=== PATIENT | female | born 1960 | race Caucasian/White ===

== ENCOUNTER → 2020-12-08 09:06 | Outpatient (CLI) | payer OTHER, SELFPAY ==
[2020-12-08 11:21] LABS: COVID19 -Nasal RAPID Negative (Negative)
== END ==
PROVIDERS: Visit Provider Physician Assistant
DX: Z01.812 Encounter for preprocedural laboratory examination (principal); Z20.822 Contact with and (suspected) exposure to COVID-19
CPT/HCPCS: 87635

== ENCOUNTER 2020-12-10 08:56 | Day surgery (SDC) | payer OTHER, SELFPAY ==
--- NOTE | 2020-12-10 | PATH_ITS ---
[facility] Accession Number: [id number] . 01 Material submitted: . PART A: colon - HEPATIC POLYP PART B: colon - SPLENIC POLYPS X2 PART C: rectum - RECTAL POLYP . 01 Clinical history: . SCREENING COLONOSCOPY . 02 Diagnosis: A. Hepatic Polyp, Biopsy: Tubular adenoma. . B. Splenic Polyps x2, Biopsies: Tubular adenomas. . C. Rectum, Polyp, Biopsy: Tubulovillous adenoma. No evidence of malignancy or high-grade dysplasia. [facility] 12/15/2020 1451 Local . 02 Electronically signed: . Luh Lacey MD, Pathologist NPI- [id number] . 01 Gross description: . Part A: HEPATIC POLYP: Received in formalin are 2 fragment(s) of lópez, soft tissue measuring 0.2 x 0.2 x 0.2 cm to 0.3 x 0.3 x 0.2 cm submitted entirely in 1 cassette(s) Part B: SPLENIC POLYPS X2: Received in formalin are 2 fragment(s) of lópez, soft tissue measuring 0.2 x 0.2 x 0.2 cm to 0.3 x 0.2 x 0.2 cm submitted entirely in 1 cassette(s) Part C: RECTAL POLYP: Received in formalin are 4 fragment(s) of lópez, soft tissue measuring 0.1 x 0.1 x 0.1 cm to 0.7 x 0.6 x 0.5 cm submitted entirely in 1 cassette(s) /ERICK 12/11/2020 1833 Local . 02 Pathologist provided ICD-10: D12.3, D12.8 . 02 CPT . 825069, 911559, [id number] Performed at: [address], [place] [id number] MD Sukhjinder Florentino MD Phone: [phone] Performed at: 02 [facility] [id number] [place] [id number] MD uLh Lacey MD Phone: [phone]
[2020-12-10] MEDS: SODIUM CHLORIDE 0.9% 1,000 ML 100 ML IV (09:29)
[2020-12-10 09:30] VITALS: BP 150/88; PULSE 104; RESP 16; TEMP 36.9; O2SAT 96; BMI 33.6
--- NOTE | 2020-12-10 10:03 | PM.HP.1 ---
History of Present Illness History of Present Illness Date Patient Seen: 12/10/20 Chief complaint: SCREENING COLONOSCOPY Narrative: First screening colonoscopy. Distant relatives with history of colorectal neoplasia Patient History Family & Social History Social History: household members spouse Tobacco & Substance use: Smoking Status Never smoker alcohol intake frequency holiday/special occasion Substance Use Type does not use Meds Home Medications and Allergies Home Medications Medication Instructions Recorded Confirmed Type acetaminophen [Tylenol] 650 mg PO Q4H PRN 12/10/20 12/10/20 History cetirizine 10 mg PO DAILY 12/10/20 12/10/20 History docusate sodium 250 mg PO DAILY 12/10/20 12/10/20 History duloxetine 60 mg PO DAILY 12/10/20 12/10/20 History fluticasone furoate 1 spray INTRANASAL DAILY 12/10/20 12/10/20 History ibuprofen-diphenhydramine cit 2 cap PO BEDTIME 12/10/20 12/10/20 History [Advil PM] polyethylene glycol 3350 [Miralax] 17 g PO DAILY 12/10/20 12/10/20 History rizatriptan 10 mg PO Q2-4H PRN 12/10/20 12/10/20 History zolpidem 5 mg PO BEDTIME PRN 12/10/20 12/10/20 History Allergies Allergy/AdvReac Type Severity Reaction Status Date / Time No Known Drug Allergies Allergy Verified 12/10/20 09:13 Exam Vital Signs (past 8 hours): - 12/10/20 09:30 Temperature 98.5 F Pulse Rate 104 H Respiratory Rate 16 Blood Pressure 150/88 H Pulse Oximetry 96 Oxygen Delivery Method Room Air Narrative Exam Narrative: Oropharynx free of lesions Chest clear to auscultation percussion Cardiac exam reveals no S3 or murmur Assessment & Plan Assessment & Plan narrative: Screening colonoscopy, 1st 1. Grandparents with history of colorectal neoplasia. Risks, benefits, alternatives have been explained.
--- NOTE | 2020-12-10 10:04 | PM.OP.ENDO ---
Operative Date/Time/Diagnoses Date of procedure: 12/10/20 Pre-op diagnosis: See indication and findings Procedure & Clinicians Study performed: Colonoscopy Same procedure as scheduled: Yes Indications: Screening Surgeon: Genny Zimmerman Procedure Notes Procedure in detail: After informed consent was obtained the patient was placed in left lateral decubitus position. The video colonoscope was introduced the rectum slowly advanced cecum. On slow withdrawal mucosa was carefully examined. The scope was removed. The patient tolerated procedure well. Preparation was good. Blood loss none Complications none Sedation Total sedation time 23 minutes Versed 10 mg fentanyl 100 right g IV titration Findings 1. Tortuous sigmoid colon with few diverticula 2. 6 mm hepatic polyp removed in a piecemeal fashion with Jumbo biopsy forceps. 3. Two 3 mm polyps in the splenic flexure both removed with Jumbo biopsy forceps 4. 18 mm semi pedunculated polyp in the rectum removed and retrieved with hot snare. We will await biopsy findings but with this large polyp certainly to be adenomatous she will follow-up in 3 years.
[2020-12-10] MEDS: MIDAZOLAM 5 MG/5 ML VIAL IV (10:50)
[2020-12-10] MEDS: fentaNYL 250 MCG/5 ML INJ IV (10:50)
[2020-12-10 11:03] VITALS: BP 135/60; PULSE 95; RESP 12; TEMP 36.6; O2SAT 95
[2020-12-10 11:08] VITALS: BP 112/67; PULSE 92; RESP 12; O2SAT 97
[2020-12-10 11:13] VITALS: BP 114/67; PULSE 94; RESP 16; O2SAT 97
[2020-12-10 11:22] VITALS: BP 118/73; PULSE 88; RESP 14; TEMP 36.6; O2SAT 98
[2020-12-10 11:31] VITALS: BP 121/78; PULSE 91; RESP 16; TEMP 36.7; O2SAT 98
== END 2020-12-10 11:40 | disposition home or self-care (01) ==
PROVIDERS: Referring Provider Internal Medicine Gastroenterology; Visit Provider Internal Medicine Gastroenterology
PROC: 0DJD8ZZ Inspection of Lower Intestinal Tract, Via Natural or Artificial Opening Endoscopic (ICD-10-PCS; CPT 45378; principal; 2020-12-10 10:30)
DX: Z12.11 Encounter for screening for malignant neoplasm of colon (principal); K57.30 Diverticulosis of large intestine without perforation or abscess without bleeding; D12.8 Benign neoplasm of rectum; D12.3 Benign neoplasm of transverse colon
CPT/HCPCS: 45385; 45380; J2250; J3010

== ENCOUNTER → 2022-09-03 11:59 | Outpatient (CLI) | payer OTHER, SELFPAY ==
--- NOTE | 2022-09-03 | DI.CT.S_ITS ---
PROCEDURE: CT HEAD/BRAIN WO CON INDICATIONS: Migraine, unspecified, not intractable, without status migra TECHNIQUE: Noncontrast 4.5 mm thick angled axial sections acquired from the foramen magnum to the vertex, with coronal and sagittal reformats. For radiation dose reduction, the following was used: automated exposure control, adjustment of mA and/or kV according to patient size. COMPARISON: None. FINDINGS: Image quality: Excellent. CSF spaces: Basal cisterns are patent. No extra-axial fluid collections. Ventricles are normal in size and shape. Brain: No midline shift. No intracranial masses or hemorrhage. Menjivar-white matter interface is normal. Incidental enlarged perivascular space noted adjacent to the right aspect of the anterior commissure Skull and face: Calvarium and visualized facial bones are intact, without suspicious lesions. Sinuses: Visualized sinuses and mastoids are clear. IMPRESSION: Unremarkable CT of the brain Approved by: Kevin Sung M.D. on 09/03/2022 at 13:35
== END ==
PROVIDERS: PCP Physician Assistant; Referring Provider Physician Assistant; Visit Provider Physician Assistant
DX: G43.909 Migraine, unspecified, not intractable, without status migrainosus (principal); R29.810 Facial weakness
CPT/HCPCS: 70450

== ENCOUNTER 2022-12-09 19:22 | Inpatient (IN) | payer OTHER, SELFPAY ==
[2022-12-09 19:40] VITALS: BP 172/72; PULSE 104; RESP 30; TEMP 37.8; O2SAT 99; BMI 38.4
--- NOTE | 2022-12-09 20:06 | DI.CT.S_ITS ---
PROCEDURE: CT ABDOMEN PELVIS W CON INDICATIONS: acute severe lower abd pain TECHNIQUE: After the administration of IV contrast, axial sections were acquired from the lung bases to the pubic symphysis. Coronal and sagittal reformats were performed. For radiation dose reduction, the following was used: automated exposure control, adjustment of mA and/or kV according to patient size. COMPARISON: None. FINDINGS: Image quality: Excellent. Lung bases: There is mild dependent atelectasis and scarring. Heart: Heart is normal in size. There is a small hiatal hernia. Mild concentric wall thickening is demonstrated in the distal esophagus. Chest wall: There is a thick-walled collection within the right breast measuring up to 4.3 x 2.3 cm with adjacent surgical clips likely representing a postsurgical seroma. ABDOMEN: Liver: There is a lobulated cyst within the anterior right hepatic dome. There are 2 additional small foci within the liver which are too small to characterize but likely represent cysts. Gallbladder: Within normal limits without calcified gallstones. Biliary ducts: No biliary ductal dilatation. Pancreas: Unremarkable. Spleen: Normal in size. Adrenal Glands: No adrenal nodules. Kidneys and Ureters: No hydronephrosis. There is a right renal cortical cyst medially. Stomach and Bowel: There are postsurgical changes consistent with prior gastric lap band surgery. Stomach, small bowel loops, and colon are normal in caliber and wall thickness. There is an appendicolith measuring up to 0.5 cm within the appendix distally with associated dilatation of the appendiceal tip measuring up to 1.1 cm. There is associated periappendiceal fat stranding and minimal fluid. The findings are consistent with acute appendicitis. No free air or periappendiceal abscess. Ventral Wall: No hernia. Abdominal Nodes: No retroperitoneal or mesenteric adenopathy by size criteria. Vessels: Aorta and inferior vena cava are normal in size. PELVIS: Pelvic Organs: Unremarkable. Bladder: Unremarkable. Pelvic Nodes: No enlarged lymph nodes. Miscellaneous: No inguinal hernias are seen. Bones: Visualized osseous structures demonstrate no suspicious focal lesions. The IMPRESSION: 1. Acute appendicitis demonstrated with an appendicolith in the distal appendix. Associated dilatation of the appendiceal tip is demonstrated without adjacent fluid collection, abscess, or free air to suggest definite perforation at this time. Findings discussed with Dr. Medina on 12/09/2022 at 9:46 p.m.. Dictated by: Sukhjinder Sewell M.D. on 12/09/2022 at 21:35 Approved by: Sukhjinder Sewell M.D. on 12/09/2022 at 21:50
[2022-12-09 20:12] LABS: Add Manual Diff / Slide Review NO; Basophils Absolute Auto 100 /uL (0-100); Basophils Percent Auto 0.6 % (0-2); Eosinophils Absolute Auto 0 /uL (0-450); Eosinophils Percent Auto 0.2 % (2-4); Hematocrit 37.6 % (36-46); Hemoglobin 12.7 g/dL (12.0-16.0); Lymphocytes Absolute Auto 1500 /uL (1100-4500); Lymphocytes Percent Auto 9.8 % (25-40); Mean Corpuscular HGB Conc 33.7 % (30-36); Mean Corpuscular Hemoglobin 29.7 PG (26-34); Mean Corpuscular Volume 88.1 fL (80-100); Monocytes Absolute Auto 1600 /uL (0-900); Monocytes Percent Auto 10.1 % (3-14); Neutrophils Absolute Auto 12300 /uL (1500-7000); Neutrophils Percent Auto 79.3 % (50-75); Platelet Count 316 X10^3/uL (150-400); Red Blood Cell Count 4.27 X10^6/uL (4.0-5.2); Red Cell Distribution Width 13.4 % (11.6-14.8); White Blood Cell Count 15.5 X10^3/uL (4.5-11.0)
[2022-12-09] MEDS: SODIUM CHLORIDE 0.9% 1,000 ML 1000 ML IV (20:14)
[2022-12-09] MEDS: HYDROMORPHONE 0.5 MG INJ IV ×3 (20:14→20:44)
[2022-12-09] MEDS: ONDANSETRON 4 MG/2 ML INJ IV (20:14)
[2022-12-09 20:20] LABS: Alanine Aminotransferase 27 IU/L (<35); Albumin 4.3 g/dL (3.5-5.0); Albumin Globulin Ratio 1.3 (1.0-2.8); Alkaline Phosphatase 127 U/L (38-126); Aspartate Aminotransferase 35 IU/L (14-36); Bilirubin Total 0.5 mg/dL (0.2-1.3); Blood Urea Nitrogen 15 mg/dL (7-17); Calcium 8.8 mg/dL (8.4-10.2); Carbon Dioxide 23 mmol/L (22-32); Chloride 103 mmol/L (98-107); Estimated Glomerular Filt Rate > 60 mL/min (>60); Globulin 3.2 g/dL (1.7-4.1); Glucose 120 mg/dL (80-110); HEMOLYSIS < 15 (0-50); Lipase 107 U/L (23-300); Sodium 136 mmol/L (137-145); Total Protein 7.5 g/dL (6.3-8.2)
[2022-12-09 20:29] LABS: Lactate (Lactic Acid) 1.5 mmol/L (0.7-2.1)
[2022-12-09] MEDS: SODIUM CHLORIDE 0.9% 1,000 ML 130 ML IV (21:16)
[2022-12-09 21:22] VITALS: BP 137/70; PULSE 101; RESP 25; O2SAT 94
[2022-12-09 21:30] VITALS: BP 141/67; PULSE 98; RESP 24; O2SAT 93
--- NOTE | 2022-12-09 22:03 | ED_ITS ---
HPI - General Adult General Chief complaint: Abdominal Pain Stated complaint: Severe ABD pain Time Seen by Provider: 12/09/22 19:58 Source: patient Mode of arrival: Ambulatory History of Present Illness HPI narrative: 62-year-old woman with a history of back pain controlled by Cymbalta, headaches controlled with HS amitriptyline and Ambien for sleep disorder was in her usual state of fairly good health until around 6:00 p.m. tonight after dinner when she began experiencing severe lower abdominal pain. she notes that she has had a g astric sleeve but no other intra-abdominal surgery. She is never had a bowel obstruction. She does not describe fevers. The nausea from the pain is severe but she is not yet had any vomiting. Describes normal stools recently. No chest pain, palpitations, dyspnea. Related Data Home Medications Medication Instructions Recorded Confirmed acetaminophen 325 mg tablet 650 mg PO Q4H PRN Anxiety 12/10/20 12/10/20 (Tylenol) cetirizine 10 mg tablet 10 mg PO DAILY 12/10/20 12/10/20 docusate sodium 250 mg capsule 250 mg PO DAILY 12/10/20 12/10/20 duloxetine 60 mg capsule,delayed 60 mg PO DAILY 12/10/20 12/10/20 release fluticasone furoate 27.5 1 spray intranasal DAILY 12/10/20 12/10/20 mcg/actuation nasal spray,suspension ibuprofen-diphenhydramine citrate 2 cap PO BEDTIME 12/10/20 12/10/20 200 mg-38 mg tablet (Advil PM) polyethylene glycol 3350 17 17 g PO DAILY 12/10/20 12/10/20 gram/dose oral powder (Miralax) rizatriptan 10 mg tablet 10 mg PO Q2-4H PRN Headache 12/10/20 12/10/20 zolpidem 5 mg tablet 5 mg PO BEDTIME PRN Insomnia 12/10/20 12/10/20 Allergies Allergy/AdvReac Type Severity Reaction Status Date / Time No Known Drug Allergies Allergy Verified 12/09/22 19:48 Review of Systems Review of Systems Narrative: Pertinent positive and negative findings as per HPI Patient History Medical History (Updated 12/09/22 @ 22:13 by Jennifer Medina MD) Acute appendicitis Chronic back pain Chronic headache Surgical History (Updated 12/09/22 @ 22:06 by Jennifer Medina MD) Status post gastric banding Social History household members: spouse Smoking Status: Never smoker Smoking Status: Never smoker alcohol intake frequency: holidays/special occasions only Substance Use Type: does not use Exam Initial Vital Signs Initial Vital Signs: Vital Signs Temperature 100.1 F H 12/09/22 19:40 Pulse Rate 104 H 12/09/22 19:40 Respiratory Rate 30 H 12/09/22 19:40 Blood Pressure 172/72 H 12/09/22 19:40 Pulse Oximetry 99 12/09/22 19:40 Oxygen Delivery Method Room Air 12/09/22 19:40 General: in severe distress secondary to lower abdominal pain, pale, diaphoretic HEENT: Moist mucous membranes, normal sclera with reactive pupils, Neck: No JVD, supple Respiratory: Lungs are clear to auscultation, no wheezing no rales no rhonchi. Full and symmetrical air movement Cardiac: Regular rate and rhythm no murmurs no bruits Abdomen: Soft, very tender in the lower quadrants with guarding and rebound. Mild tenderness in the upper quadrants. Hypoactive to absent bowel tones Skin: Warm and dry, no rashes Neurologic: Grossly neurologically intact with no obvious asymmetries or abnormalities Extremities: No trauma, well perfused Psych: Cooperative, appropriate insight and affect Course Orders Ordered: ED Orders 12/09/22 19:49 EKG-12 Lead Stat 12/09/22 20:00 Complete Blood Count AUTO DIFF Stat Comprehensive Metabolic Panel Stat Lactate (Lactic Acid) Stat Lipase Stat 12/09/22 20:06 CT abdomen pelvis w con Stat 12/09/22 21:57 Education, smoking cessation ONGOING 12/10/22 05:00 Complete Blood Count AUTO DIFF DAILY Comprehensive Metabolic Panel DAILY NT-proBNP (BNP-Adult 18+) Routine Acetaminophen (Acetaminophen 325 Mg Tablet) 650 mg PO Q6H [facility] Last Admin: 12/09/22 22:54 Dose: 650 mg Documented By: OFELIA Celecoxib (Celecoxib 200 Mg Capsule) 200 mg PO BID [facility] Last Admin: 12/09/22 23:01 Dose: 200 mg Documented By: OFELIA Gabapentin (Gabapentin 100 Mg Capsule) 300 mg PO TID [facility] Last Admin: 12/09/22 23:01 Dose: 300 mg Documented By: OFELIA Heparin Sodium (Porcine) (Heparin 5,000 Unit/Ml Vial) 5,000 unit SUBCUT BID [facility] Last Admin: 12/09/22 22:53 Dose: 5,000 unit Documented By: OFELIA Hydromorphone HCl (Hydromorphone 0.5 Mg Inj) 0.5 mg IV Q15MIN PRN PRN Reason: Pain, Last Admin: 12/09/22 20:44 Dose: 0.5 mg Documented By: Admin: 12/09/22 20:29 Dose: 0.5 mg Documented By: Admin: 12/09/22 20:14 Dose: 0.5 mg Documented By: OFELIA Sodium Chloride (Normal Saline 0.9%) 1,000 mls @ 130 mls/hr IV CONT [facility] Last Admin: 12/09/22 21:16 Dose: 130 mls/hr Documented By: OFELIA Lactated Ringer's (Lactated Ringers) 1,000 mls @ 150 mls/hr IV CONT [facility] Last Admin: 12/09/22 22:54 Dose: 150 mls/hr Documented By: OFELIA Naloxone HCl (Naloxone 0.4 Mg/Ml Vial) 0.2 mg IV Q2MIN PRN PRN Reason: Opiate Reversal Ondansetron HCl (Ondansetron 4 Mg/2 Ml Inj) 4 mg IV NOW PRN PRN Reason: Nausea And Vomiting Oxycodone HCl (Oxycodone Ir 5 Mg Tablet) 5 mg PO Q3H PRN PRN Reason: Pain, Moderate (4-6) Oxycodone HCl (Oxycodone Ir 10 Mg Tablet) 10 mg PO Q3H PRN PRN Reason: Pain, Severe (7-10) Pantoprazole Sodium (Pantoprazole Dr 20 Mg Tablet) 20 mg PO 0600 [facility] Discontinued Medications Celecoxib (Celecoxib 100 Mg Capsule) 200 mg PO BID [facility] Last Admin: 12/10/22 00:16 Dose: Not Given Documented By: OFELIA Sodium Chloride (Normal Saline 0.9%) 1,000 mls @ 1,000 mls/hr IV BOLUS ONE Stop: 12/09/22 21:04 Last Infusion: 12/09/22 21:03 Dose: 0 mls/hr Documented By: Admin: 12/09/22 20:14 Dose: 1,000 mls/hr Documented By: OFELIA Piperacillin Sod/Tazobactam (Sod 4.5 gm/ Sodium Chloride) 100 mls @ 200 mls/hr IV NOW ONE Stop: 12/09/22 22:03 Last Infusion: 12/10/22 00:15 Dose: 0 mls/hr Documented By: Admin: 12/09/22 22:53 Dose: 200 mls/hr Documented By: OFELIA Ondansetron HCl (Ondansetron 4 Mg/2 Ml Inj) 4 mg IV NOW ONE Stop: 12/09/22 20:06 Last Admin: 12/09/22 20:14 Dose: 4 mg Documented By: OFELIA Vital Signs Vital signs: Vital Signs - 8 hr 12/09/22 19:40 12/09/22 21:22 12/09/22 21:22 Temperature 100.1 F H Pulse Rate 104 H 101 H Respiratory Rate 30 H 25 H Blood Pressure 172/72 H 137/70 Pulse Oximetry 99 94 Oxygen Delivery Method Room Air 12/09/22 21:30 12/09/22 21:30 Temperature Pulse Rate 98 H Respiratory Rate 24 Blood Pressure 141/67 H Pulse Oximetry 93 Oxygen Delivery Method Medical Decision Making Lab Data 12/09/22 20:00 12/09/22 20:00 Labs: Lab Results 12/09/22 12/09/22 12/09/22 Range/Units 20:00 20:00 20:00 WBC 15.5 H (4.5-11.0) X10^3/uL RBC 4.27 (4.0-5.2) X10^6/uL Hgb 12.7 (12.0-16.0) g/dL Hct 37.6 (36-46) % MCV 88.1 (80-100) fL MCH 29.7 (26-34) PG MCHC 33.7 (30-36) % RDW 13.4 (11.6-14.8) % Plt Count 316 (150-400) X10^3/uL Neut % (Auto) 79.3 H (50-75) % Lymph % (Auto) 9.8 L (25-40) % [place] % (Auto) 10.1 (3-14) % Eos % (Auto) 0.2 L (2-4) % Baso % (Auto) 0.6 (0-2) % Neut # (Auto) 96784 H (5429-6222) /uL Lymph # (Auto) 1500 (0862-8370) /uL [place] # (Auto) 1600 H (0-900) /uL Eos # (Auto) 0 (0-450) /uL Baso # (Auto) 100 (0-100) /uL Sodium 136 L (137-145) mmol/L Potassium 4.0 (3.4-5.1) mmol/L Chloride 103 (98-107) mmol/L Carbon Dioxide 23 (22-32) mmol/L BUN 15 (7-17) mg/dL Creatinine 0.88 (0.52-1.04) mg/dL Estimated GFR > 60 (>60) mL/min BUN/Creatinine Ratio 17.0 (6-22) Glucose 120 H (80-110) mg/dL Lactate 1.5 (0.7-2.1) mmol/L Calcium 8.8 (8.4-10.2) mg/dL Total Bilirubin 0.5 (0.2-1.3) mg/dL AST 35 (14-36) IU/L ALT 27 (<35) IU/L Alkaline Phosphatase 127 H (38-126) U/L Total Protein 7.5 (6.3-8.2) g/dL Albumin 4.3 (3.5-5.0) g/dL Globulin 3.2 (1.7-4.1) g/dL Albumin/Globulin Ratio 1.3 (1.0-2.8) Lipase 107 (23-300) U/L MDM Narrative Medical decision making narrative: CC:Acute onset severe lower abdominal pain this is a new complaint, uncertain prognosis with potential for life- threatening diagnosis Complicating co-morbidities: low back pain and chronic headaches Data collected from: patient, Social determinants of health that may influence the patients condition: Medical records reviewed: no immediate medical records are available for review Differential considered: acute surgical abdomen, appendicitis, nephrolithiasis, pyelonephritis, volvulus, bowel obstruction, diverticulitis, acute gallbladder abnormality Exam documented above, pertinent findings include: severe abdominal pain with guarding and rebound worse in the right lower quadrant Lab Test results independently reviewed as above. Pertinent findings: CBC shows moderate leukocytosis at 15.5 with left shift and no significant an emia chemistries show normal renal function, normal liver function lipase is unremarkable at 1.7 Independently reviewed EKG sinus rhythm at a rate of 99 poor baseline. Normal intervals and axis no acute ischemic changes Imaging studies independently reviewed: CT scan of the abdomen and pelvis shows acute appendicitis without abscess Consultations: Radiology, Dr. Sewell calls with acute findings from CT scan. Care is also reviewed with Dr. Loredo, general surgeon. Treatments: IV fluids, parenteral narcotics and antiemetics. Re-evaluations: 10:10pm Patient is re-evaluated. Much better control of pain after parenteral Dilaudid. Findings of acute appendicitis reviewed with her as well as plans for admission with surgical intervention tomorrow. Antibiotics will be initiated. Questions are answered and she will be admitted Critical Care Time Critical Care Time Critical Care Time: Yes Total Critical Care Time: 33 Attestation: Critical care time is separate from other billable procedures. There is a high probability of a significant, sudden or life-threatening deterioration that requires my full and direct attention, intervention and personal management. This critical care time includes consultation with family and other consulting doctors, review of records, and interpretation of data from labs, EKGs and imaging as well as managements of severe abdominal pain with concern for acute surgical abdomen Discharge Plan Departure Patient Disposition: Admitted as Observation Clinical Impression: Acute appendicitis Qualifiers: Acute appendicitis type: with localized peritonitis Appendicitis gangrene presence: without gangrene Appendicitis perforation presence: without perforation Appendicitis abscess presence: without abscess Qualified Code(s): K35.30 - Acute appendicitis with localized peritonitis, without perforation or gangrene Admit Date/Time: 12/09/22 22:52 Admit Provider: Janene Loredo
[2022-12-09] MEDS: HEPARIN 5,000 UNIT/ML VIAL 5000 UNIT SUBCUT (22:53)
[2022-12-09] MEDS: PIPERACILLIN/TAZO 4.5 GM in SODIUM CHLORIDE 0.9% 100 ML IV (22:53)
[2022-12-09] MEDS: ACETAMINOPHEN 325 MG TABLET 650 MG PO (22:54)
[2022-12-09] MEDS: LACTATED RINGERS 1,000 ML 150 ML IV (22:54)
[2022-12-09] MEDS: CELECOXIB 200 MG CAPSULE PO (23:01)
[2022-12-09] MEDS: GABAPENTIN 100 MG CAPSULE 300 MG PO (23:01)
[2022-12-10] VITALS (12 sets, daily range): BP systolic 98–112; BP diastolic 51–69; PULSE 71–95; RESP 16–19; TEMP 36.1; O2SAT 91–97; BMI 39.4
[2022-12-10 01:07] LABS: COVID19 -Nasal RAPID Negative (Negative)
[2022-12-10] MEDS: HYDROMORPHONE 0.5 MG INJ IV ×3 (02:29→16:08)
[2022-12-10] MEDS: ACETAMINOPHEN 325 MG TABLET 650 MG PO ×4 (04:15→23:09)
[2022-12-10 04:37] LABS: Add Manual Diff / Slide Review NO; Basophils Absolute Auto 100 /uL (0-100); Basophils Percent Auto 0.5 % (0-2); Eosinophils Absolute Auto 0 /uL (0-450); Eosinophils Percent Auto 0.2 % (2-4); Hematocrit 33.4 % (36-46); Hemoglobin 11.1 g/dL (12.0-16.0); Lymphocytes Absolute Auto 1600 /uL (1100-4500); Lymphocytes Percent Auto 12.1 % (25-40); Mean Corpuscular HGB Conc 33.3 % (30-36); Mean Corpuscular Hemoglobin 29.7 PG (26-34); Mean Corpuscular Volume 89.1 fL (80-100); Monocytes Absolute Auto 1000 /uL (0-900); Monocytes Percent Auto 7.8 % (3-14); Neutrophils Absolute Auto 10400 /uL (1500-7000); Neutrophils Percent Auto 79.4 % (50-75); Platelet Count 248 X10^3/uL (150-400); Red Blood Cell Count 3.74 X10^6/uL (4.0-5.2); Red Cell Distribution Width 13.6 % (11.6-14.8); White Blood Cell Count 13.1 X10^3/uL (4.5-11.0)
[2022-12-10 04:47] LABS: Alanine Aminotransferase 23 IU/L (<35); Albumin 3.4 g/dL (3.5-5.0); Albumin Globulin Ratio 1.3 (1.0-2.8); Alkaline Phosphatase 84 U/L (38-126); Aspartate Aminotransferase 26 IU/L (14-36); BUN Creatinine Ratio 15.7 (6-22); Bilirubin Total 0.6 mg/dL (0.2-1.3); Blood Urea Nitrogen 13 mg/dL (7-17); Calcium 7.9 mg/dL (8.4-10.2); Carbon Dioxide 26 mmol/L (22-32); Chloride 103 mmol/L (98-107); Estimated Glomerular Filt Rate > 60 mL/min (>60); Globulin 2.7 g/dL (1.7-4.1); Glucose 104 mg/dL (80-110); HEMOLYSIS < 15 (0-50); Potassium 3.8 mmol/L (3.4-5.1); Sodium 134 mmol/L (137-145); Total Protein 6.1 g/dL (6.3-8.2)
[2022-12-10 04:55] LABS: NT-proBNP (BNP-Adult 18+) 322 pg/mL (<125)
--- NOTE | 2022-12-10 07:44 | PM.HP.1 ---
History of Present Illness History of Present Illness Date Patient Seen: 12/10/22 Time Patient Seen: 07:44 Chief complaint: Severe ABD pain Narrative: >24hrs of abdominal discomfort localizing to RLQ. +temp, anorexia no cough or diarrhea. +reflux and hemorrhoidal bleeding. CT reviewed personally and +ruptured appy with fecal lith. thickened esophagus and stomach proximal to gastric band. PFS Medical History Acute appendicitis Chronic back pain Chronic headache Surgical History Status post gastric banding Social History household members: spouse Smoking Status: Never smoker Meds Home Medications and Allergies Home Medications Medication Instructions Recorded Confirmed Type acetaminophen 325 mg tablet 650 mg PO Q4H PRN Anxiety 12/10/20 12/10/20 History (Tylenol) cetirizine 10 mg tablet 10 mg PO DAILY 12/10/20 12/10/20 History docusate sodium 250 mg capsule 250 mg PO DAILY 12/10/20 12/10/20 History duloxetine 60 mg capsule,delayed 60 mg PO DAILY 12/10/20 12/10/20 History release fluticasone furoate 27.5 1 spray intranasal DAILY 12/10/20 12/10/20 History mcg/actuation nasal spray,suspension ibuprofen-diphenhydramine citrate 2 cap PO BEDTIME 12/10/20 12/10/20 History 200 mg-38 mg tablet (Advil PM) polyethylene glycol 3350 17 17 g PO DAILY 12/10/20 12/10/20 History gram/dose oral powder (Miralax) rizatriptan 10 mg tablet 10 mg PO Q2-4H PRN Headache 12/10/20 12/10/20 History zolpidem 5 mg tablet 5 mg PO BEDTIME PRN Insomnia 12/10/20 12/10/20 History Allergies Allergy/AdvReac Type Severity Reaction Status Date / Time No Known Drug Allergies Allergy Verified 12/09/22 19:48 Review of Systems Review of Systems ROS: Yes All systems reviewed with the patient and are negative except as otherwise documented Exam Vital Signs (past 8 hours): - 12/10/22 00:18 12/10/22 04:06 Pulse Rate 95 H 81 Respiratory Rate 16 Blood Pressure 108/51 L Blood Pressure [Left Arm] 111/58 L Pulse Oximetry 95 91 Oxygen Delivery Method Room Air Room Air Oxygen Delivery Method Room Air Const General: cooperative and comfortable Nutritional Appearance: obese HENVA Head: normocephalic and atraumatic Eyes Sclera: sclerae normal Neck Neck: trachea midline Chest Chest: normal inspection of the chest Resp Effort & Inspection: normal respiratory effort and able to speak in complete sentences Cardio Rate: regular rate Rhythm: regular rhythm GI Palpation: soft Other: RLQ tenderness Skin General: turgor normal Neuro General: patient alert, patient awake and patient oriented x3 Cognition: normal cognition Psych Mental Status: mental status grossly normal Judgment: judgment good Objective Labs 12/10/22 04:20 12/10/22 04:20 Labs: Laboratory Results - last 24 hr 12/09/22 12/09/22 12/09/22 20:00 20:00 20:00 WBC 15.5 H RBC 4.27 Hgb 12.7 Hct 37.6 MCV 88.1 MCH 29.7 MCHC 33.7 RDW 13.4 Plt Count 316 Neut % (Auto) 79.3 H Lymph % (Auto) 9.8 L [place] % (Auto) 10.1 Eos % (Auto) 0.2 L Baso % (Auto) 0.6 Neut # (Auto) 97132 H Lymph # (Auto) 1500 [place] # (Auto) 1600 H Eos # (Auto) 0 Baso # (Auto) 100 Sodium 136 L Potassium 4.0 Chloride 103 Carbon Dioxide 23 BUN 15 Creatinine 0.88 Estimated GFR > 60 BUN/Creatinine Ratio 17.0 Glucose 120 H Lactate 1.5 Calcium 8.8 Total Bilirubin 0.5 AST 35 ALT 27 Alkaline Phosphatase 127 H NT-Pro-B Natriuret Pep Total Protein 7.5 Albumin 4.3 Globulin 3.2 Albumin/Globulin Ratio 1.3 Lipase 107 SARS-CoV-2 (PCR) 12/10/22 12/10/22 12/10/22 00:00 04:20 04:20 WBC 13.1 H RBC 3.74 L Hgb 11.1 L Hct 33.4 L MCV 89.1 MCH 29.7 MCHC 33.3 RDW 13.6 Plt Count 248 Neut % (Auto) 79.4 H Lymph % (Auto) 12.1 L [place] % (Auto) 7.8 Eos % (Auto) 0.2 L Baso % (Auto) 0.5 Neut # (Auto) 81602 H Lymph # (Auto) 1600 [place] # (Auto) 1000 H Eos # (Auto) 0 Baso # (Auto) 100 Sodium 134 L Potassium 3.8 Chloride 103 Carbon Dioxide 26 BUN 13 Creatinine 0.83 Estimated GFR > 60 BUN/Creatinine Ratio 15.7 Glucose 104 Lactate Calcium 7.9 L Total Bilirubin 0.6 AST 26 ALT 23 Alkaline Phosphatase 84 NT-Pro-B Natriuret Pep 322 H Total Protein 6.1 L Albumin 3.4 L Globulin 2.7 Albumin/Globulin Ratio 1.3 Lipase SARS-CoV-2 (PCR) Negative Assessment & Plan Assessment & Plan narrative: ruptured appendicitis with fecal lith obesity, s/p lap band esophagitis rectal bleeding Plan: IV antibiotics Lap appy today outpatient EGD and colonoscopy. COVID-19 COVID-19 status: Negative Time Spent With Patient Time with patient: 30 to 49 minutes with 50% spent counseling/coordinating care
[2022-12-10] MEDS: GABAPENTIN 300 MG CAPSULE PO ×3 (08:08→21:21)
[2022-12-10] MEDS: CELECOXIB 200 MG CAPSULE PO ×2 (08:08→21:20)
[2022-12-10] MEDS: LACTATED RINGERS 1,000 ML 150 ML IV ×2 (08:14→19:12)
[2022-12-10] MEDS: PANTOPRAZOLE 40 MG VIAL IV (09:54)
--- NOTE | 2022-12-10 11:17 | PC.NURSE ---
Dr. Loredo notified that pt did decide to have her LAP band addressed/removed if possible while in sx.
--- NOTE | 2022-12-10 12:18 | CM.IDA ---
Initial DCP Assessment Patient is 62 y/o female who presents to due to concern for abdominal pain and N/V/D. Patient was diagnosed with Acute Appendicitis. Patient was admitted by surgeon Dr. Loredo with scheduled surgery this evening. Patient's PCP is Letha Charles PA-C at [facility], Patient has [employer] insurance. PARTNER CCO enters room to meet with patient. Patient presents as A/Ox4, patient resides in [place] with spouse. Patient endorses independence with ADLs and states that she drives. Patient endorses she has family in [place] and she was caring for her grandkids when she started to feel sick and needed to go to the hospital. Patient denies DCP needs and anticipates going home once medically clear for d/c. Plan: Patient to have Appendicitis surgery today, No anticipated DCP needs. Patient to d/c with spouse to home upon medical clearance. KELLY Chau Discharge Planning/Care Management CM Discharge Assessment Start: 12/10/22 12:17 Freq: Status: Active Protocol: Document 12/10/22 12:17 LN (Rec: 12/10/22 12:18 LN [id number]) Discharge Planning Assessment Assigned Signal Repairer KELLY James History Provided By Patient,Medical Record Has Patient been admitted in last 30 No days? Prior Living Arrangements House Household Members spouse Type of transporation used prior to Drives own vehicle admit Independent with ADL's Yes Is patient alert and oriented? Yes Referrals Initiated None needed Please Provide Date Initial DC 12/10/22 Assessment Was Performed
[2022-12-10] MEDS: PIPERACILLIN/TAZO 3.375 GM in SODIUM CHLORIDE 0.9% 100 ML IV ×2 (13:35→21:21)
[2022-12-10] MEDS: OXYCODONE IR 5 MG TABLET PO ×2 (16:07→21:22)
[2022-12-10] MEDS: SODIUM CHLORIDE 0.9% 1,000 ML 130 ML IV (23:08)
[2022-12-11] VITALS (21 sets, daily range): BP systolic 106–141; BP diastolic 56–84; PULSE 82–105; RESP 11–20; TEMP 35.6–37.7; O2SAT 90–98; BMI 39.4
--- NOTE | 2022-12-11 | PATH_ITS ---
[facility] Accession Number: [id number] No. of containers..01 Tissue . 01 Material submitted: . appendix - APPENDIX . 01 Clinical history: . SEVERE AVD PAIN . 01 Diagnosis: Vermiform Appendix, Appendectomy: Acute transmural appendicitis and periappendicitis with focal changes consistent with perforation site. Negative for neoplasia. MRV 12/15/2022 1412 Local . 01 Electronically signed: . Janene Gonzales MD, Pathologist NPI- [id number] . 01 Gross description: . The specimen is received in formalin labeled with the patient's name, , and appendix, and consists of a vermiform appendix measuring 9.2 x 0.6 cm with a moderate amount of attached adipose extending out to 2.1 cm. The serosa is lópez with adherent material consistent with exudate and a full thickness defect is identified measuring 0.5 cm in greatest dimension. The surgical margin is received closed with alejandro which are removed and the margin is inked blue. Sectioning reveals the lumen to contain brown semi-solid material and range from 0.1 to 0.3 cm in diameter. The angeles are lópez and average 0.3 cm thick with no distinct lesions identified. Coal Screener sections to include one half of the bisected distal tip, surgical margin, and cross-section with defect are submitted in cassette A1. ([id number]) /TREY 12/14/2022 1024 Local . 01 Pathologist provided ICD-10: K35.32 . 01 CPT . 187535 Specimen Comment: A courtesy copy of this report has been sent to [phone] Performed at: 01 [facility] [address] [place] [address], [place], [place] [id number] MD Sukhjinder Florentino MD Phone: [phone]
[2022-12-11] MEDS: ACETAMINOPHEN 325 MG TABLET 650 MG PO ×2 (05:37→20:54)
[2022-12-11] MEDS: PIPERACILLIN/TAZO 3.375 GM in SODIUM CHLORIDE 0.9% 100 ML IV ×2 (05:38→20:55)
[2022-12-11] MEDS: SODIUM CHLORIDE 0.9% 1,000 ML 130 ML IV ×3 (06:07→22:29)
[2022-12-11] MEDS: PANTOPRAZOLE DR 20 MG TABLET PO (06:44)
--- NOTE | 2022-12-11 09:47 | PC.NURSE ---
Pt A/O has been NPO all noc. SpO2 97% RA Denies discomfort at this time IVF of NS @ 130cc/hr infusing into RAC via pump w/o incidence. Awaiting to go to OR Call light w/in reach, pt calls appropriately for needs.
[2022-12-11] MEDS: LACTATED RINGERS 1,000 ML 42 ML IV (12:35)
--- NOTE | 2022-12-11 12:53 | PM.PREOP ---
Pre-operative Note COVID-19 COVID-19 status: Negative Criteria for continued procedure: Expected advancement of disease process Interval Note History & Physical reviewed/Exam performed by Physician: Yes Changes to H&P: No H&P completed within 30 days and has changed as indicated here:: Will add possible removal of lap band to the surgical procedure.
--- NOTE | 2022-12-11 13:30 | SUR.OPER ---
Supine on padded OR bed, head on pillow, arms padded and tucked at sides, legs uncrossed, safety belt at thigh, tape over blanket over lower legs .
--- NOTE | 2022-12-11 13:38 | SUR.OPER ---
GLASSES IN LABELED BAG TO PACU WITH PATIENT
[2022-12-11] MEDS: BUPIVACAINE 0.25% (PF) 30 ML, EPINEPHrine 0.15 MG INJ (13:48)
[2022-12-11] MEDS: LACTATED RINGERS 1,000 ML 150 ML IV (14:13)
--- NOTE | 2022-12-11 14:21 | CM.DPNOTE ---
Discharge Planning Note: Patient to surgery today for a lap appy. No DCP needs anticipated. Patient lives with spouse in [place]. She is generally independent and drives. Plan: DC to care of spouse who will transport when medically cleared. Kristen Turner RN/DCP
--- NOTE | 2022-12-11 14:58 | P.OP_ITS ---
Operative Date/Time/Diagnoses Date of procedure: 12/11/22 Time of procedure: 14:59 Pre-op diagnosis: Ruptured appendicitis. History of lap band Post-op diagnosis: same Procedure & Clinicians Procedure: Laparoscopic appendectomy with removal of lap band Same procedure as scheduled: Yes Indications: Ruptured appendicitis, chronic GI symptoms from lap band Surgeon: Janene Loredo Click Yes if Unassisted: Yes Anesthesia Type: General and Local Operative Notes Findings: Ruptured appendicitis with focal contained perforation. Normal-appearing lap band Closure Type: primary Specimen(s): other (Appendix) Estimated Blood Loss (mL): 50 Blood products transfused: none Procedure in detail: Preop diagnosis: Ruptured appendicitis, existing lap band Postop diagnosis: Same Operative procedure: Laparoscopic appendectomy with removal of lap band Surgeon: Trinity Loredo MD Findings: Contained ruptured appendicitis. Normal-appearing lap band Procedure: Patient placed in a supine position. Prepped and draped in sterile fashion to expose her abdomen. I began with the open technique an infraumbilical port site using a 12 mm port. After insufflation I inserted a 5 mm port in the suprapubic area and a 5 mm port in the left lateral abdomen. Appendix was identified and mobilized. Appendiceal mesentery was taken down with electrocautery with good hemostasis and a healthy staple line. Appendix was placed into an Endo-Catch bag and pulled through the infraumbilical port site intact. Of note manipulation of a fallopian tube also was caught up in the process caused some bleeding which was addressed and not bleeding at the end of the procedure. Leaving the existing ports in place I placed 3 other 5 mm ports in the upper abdomen to remove the lap band. Two on the right upper abdomen and 1 on the left. Scissors and electrocautery was used to display and then severed the lap band which was pulled through the umbilical port intact. Intact being that the tubing to the port itself was severed prior to removal of the port from the abdomen. I then removed all ports and began closure. Closure consisted of fascial closure of the infraumbilical port site with interrupted 0 Vicryl. Skin was closed with running 4-0 Vicryl. The abdominal wall port for the lap band was removed through the old incision using blunt dissection electrocautery and sharp dissection. That wound was closed skin only with a running 4.0 Vicryl. Steri- Strips and sterile dressings were placed on all wounds. Patient was awakened, extubated, taken to recovery room in stable condition. Needle, instrument, sponge counts was correct. Specimen: Appendix Blood loss: 50 mL Complications: none Post-operative Condition: stable Disposition: PACU
--- NOTE | 2022-12-11 15:01 | SUR.PHASEI ---
Patient to recovery room with anesthesia and OR nurse in stable condition; placed on lunchroom monitor; vss; abdominal incisions x 7 with small amount of oozing noted from umbilical dressing. Lungs CTA; no distress noted.
[2022-12-11] MEDS: LORATADINE 10 MG TABLET PO (17:36)
[2022-12-11] MEDS: DULOXETINE 30 MG CAPSULE 120 MG PO (17:36)
[2022-12-11] MEDS: AMITRIPTYLINE 25 MG TABLET PO (17:36)
[2022-12-11] MEDS: GABAPENTIN 300 MG CAPSULE PO (20:55)
[2022-12-11] MEDS: OXYCODONE IR 10 MG TABLET PO (20:55)
[2022-12-12] VITALS: BP 127/51; PULSE 97; RESP 22; TEMP 36.9; O2SAT 90
[2022-12-12 01:00] VITALS: O2SAT 91
[2022-12-12 04:00] VITALS: BP 105/52; PULSE 85; RESP 18; TEMP 36.7; O2SAT 92
[2022-12-12 05:00] VITALS: O2SAT 92
[2022-12-12] MEDS: OXYCODONE IR 10 MG TABLET PO (05:42)
[2022-12-12] MEDS: PANTOPRAZOLE DR 20 MG TABLET PO (05:42)
[2022-12-12] MEDS: PIPERACILLIN/TAZO 3.375 GM in SODIUM CHLORIDE 0.9% 100 ML IV (05:43)
[2022-12-12] MEDS: ACETAMINOPHEN 325 MG TABLET 650 MG PO (05:43)
[2022-12-12] MEDS: SODIUM CHLORIDE 0.9% 1,000 ML 130 ML IV (06:12)
[2022-12-12 06:57] LABS: Add Manual Diff / Slide Review NO; Basophils Absolute Auto 100 /uL (0-100); Basophils Percent Auto 0.5 % (0-2); Eosinophils Absolute Auto 0 /uL (0-450); Eosinophils Percent Auto 0.1 % (2-4); Hematocrit 30.8 % (36-46); Hemoglobin 10.2 g/dL (12.0-16.0); Lymphocytes Absolute Auto 1200 /uL (1100-4500); Lymphocytes Percent Auto 8.9 % (25-40); Mean Corpuscular HGB Conc 33.2 % (30-36); Mean Corpuscular Hemoglobin 29.5 PG (26-34); Mean Corpuscular Volume 88.8 fL (80-100); Monocytes Absolute Auto 1500 /uL (0-900); Monocytes Percent Auto 10.5 % (3-14); Neutrophils Absolute Auto 11000 /uL (1500-7000); Platelet Count 279 X10^3/uL (150-400); Red Blood Cell Count 3.46 X10^6/uL (4.0-5.2); Red Cell Distribution Width 13.4 % (11.6-14.8); White Blood Cell Count 13.8 X10^3/uL (4.5-11.0)
--- NOTE | 2022-12-12 10:04 | P.PN_ITS ---
Subjective Subjective Date Patient Seen: 12/12/22 Time Patient Seen: 10:04 Interval history: No issues with food intake. Interested in going home today. Exam Vital Signs (past 8 hours): - 12/12/22 04:00 12/12/22 05:00 Temperature 98.0 F Pulse Rate 85 Respiratory Rate 18 Blood Pressure 105/52 L Pulse Oximetry 92 92 Oxygen Delivery Method Room Air Oxygen Delivery Method Room Air Oxygen Flow Rate 0 Narrative Exam Narrative: No post op complications. Objective Labs 12/12/22 06:21 12/10/22 04:20 Labs: Laboratory Results - last 24 hr 12/12/22 06:21 WBC 13.8 H RBC 3.46 L Hgb 10.2 L Hct 30.8 L MCV 88.8 MCH 29.5 MCHC 33.2 RDW 13.4 Plt Count 279 Neut % (Auto) 80.0 H Lymph % (Auto) 8.9 L [place] % (Auto) 10.5 Eos % (Auto) 0.1 L Baso % (Auto) 0.5 Neut # (Auto) 62854 H Lymph # (Auto) 1200 [place] # (Auto) 1500 H Eos # (Auto) 0 Baso # (Auto) 100 PFSH Medical History Acute appendicitis Chronic back pain Chronic headache Surgical History Status post gastric banding Social History household members: spouse Smoking Status: Never smoker alcohol intake: current Assessment & Plan Post-op Postoperative Procedures: Procedures Operation Date: 12/11/22 14:30 Actual Procedure Side Surgeon p Laparoscopic Appendectomy, Removal Lap Band Not Applicable Janene Loredo MD Postoperative status: doing well Postoperative plan: routine post-op care and discharge Postoperative plan narrative: Finish out antibiotics of Augmentin at home. Liftin restriction EGD when she has next colonoscopy(screening) to eval health of stomach after Lap band removal. Time Spent With Patient Time with patient: 15-24 minutes Quality VTE Deep Vein Thrombosis/Pulmonary Embolism Present on Admission: No
--- NOTE | 2022-12-12 10:07 | PM.DS.1 ---
History of Present Illness History of Present Illness Date Patient Seen: 12/12/22 Time Patient Seen: 10:07 Chief complaint: Severe ABD pain Narrative: >24hrs of abdominal discomfort localizing to RLQ. +temp, anorexia no cough or diarrhea. +reflux and hemorrhoidal bleeding. CT reviewed personally and +ruptured appy with fecal lith. thickened esophagus and stomach proximal to gastric band. Discharge Providers Provider Date of admission: 12/09/22 22:52 Discharge Date: 12/12/22 Primary care physician: Letha Charles Consults: none Discharge provider: Janene Loredo MD Summary Hospital Course Discharge Diagnosis: sepsis ruptured appendicitis lap band removal Obesity Hospital Course: admitted for IV antibiotics followed by laparoscopic appendectomy with lap band removal No postoperative complications. We will discharge to home on p.o. antibiotics with follow-up in 2-4 weeks. Lifting restrictions of 15 lb for 2 weeks. Status at Discharge Cognitive/behavioral status at discharge: at baseline, oriented Functional status at discharge: independent ambulation Overall status at discharge: patient is progressing back to baseline Time Spent with Patient Time spent: Less than 30 minutes Exam Vital Signs (past 8 hours): - 12/12/22 04:00 12/12/22 05:00 Temperature 98.0 F Pulse Rate 85 Respiratory Rate 18 Blood Pressure 105/52 L Pulse Oximetry 92 92 Oxygen Delivery Method Room Air Oxygen Delivery Method Room Air Oxygen Flow Rate 0 Narrative Exam Narrative: Wounds intact. No complications. Tolerating p.o. without upper GI issues. Objective Labs 12/12/22 06:21 12/10/22 04:20 Labs: Laboratory Results - last 24 hr 12/12/22 06:21 WBC 13.8 H RBC 3.46 L Hgb 10.2 L Hct 30.8 L MCV 88.8 MCH 29.5 MCHC 33.2 RDW 13.4 Plt Count 279 Neut % (Auto) 80.0 H Lymph % (Auto) 8.9 L [place] % (Auto) 10.5 Eos % (Auto) 0.1 L Baso % (Auto) 0.5 Neut # (Auto) 32338 H Lymph # (Auto) 1200 [place] # (Auto) 1500 H Eos # (Auto) 0 Baso # (Auto) 100 PFSH Medical History Acute appendicitis Chronic back pain Chronic headache Surgical History Status post gastric banding Social History household members: spouse Smoking Status: Never smoker alcohol intake: current Discharge Assessment & Plan Assessment and Plan Assessment: Sepsis on admission responding to IV antibiotics. Ruptured appendicitis is primary diagnosis. Underwent laparoscopic appendectomy with good success as well as removal of lap band. Plan of Treatment: Discharge home on p.o. antibiotics for a total of 14 days. Follow-up surgery Clinic 2-4 weeks. Lifting restrictions of 15 lb for 2 weeks. Recommend EGD at the same time of her next colonoscopy which is due for colon cancer screening to evaluate the health of her stomach after removal of gastric band. Discharge Plan Discharge Plan Patient Disposition: Home Provider Discharge Comment: Protonix for reflux, vit for anemia. Discharge orders & Medications Prescriptions: New celecoxib [Celebrex] 200 mg Capsule 200 mg PO BID Qty: 20 0RF pantoprazole 20 mg Tablet,Delayed Release (Dr/Ec) 20 mg PO 0600 Qty: 30 0RF gabapentin [Neurontin] 300 mg Capsule 300 mg PO TID Qty: 30 0RF amoxicillin-pot clavulanate 875-125 mg Tablet 1 tab PO BID Qty: 14 0RF oxycodone 5 mg Tablet 5 mg PO Q3H PRN (Reason: Pain, Moderate (4-6)) Qty: 20 0RF Prenatabs Rx 29 mg iron- 1 mg Tablet 1 tab PO DAILY Qty: 30 0RF Continued amitriptyline 25 mg Tablet 25 mg PO DAILY cetirizine 10 mg Tablet 10 mg PO DAILY rizatriptan 10 mg Tablet 10 mg PO Q2-4H PRN (Reason: Headache) zolpidem 5 mg Tablet 5 mg PO BEDTIME PRN (Reason: Insomnia) polyethylene glycol 3350 [Miralax] 17 gram/dose Powder 17 g PO PRN PRN (Reason: Constipation) docusate sodium 250 mg Capsule 250 mg PO DAILY duloxetine 60 mg Capsule,Delayed Release(Dr/Ec) 120 mg PO DAILY fluticasone furoate 27.5 mcg/actuation [place],Suspension 1 spray INTRANASAL DAILY Follow up/Referrals: Letha Charles PA-C [Primary Care Provider] - Janene Loredo MD [Emergency Provider] - Diet/Activity/Treatments Diet: Diet as Tolerated Visit Report/Discharge Packet Instructions: DI for an Appendectomy, DI for Laparoscopy Stand Alone Forms: Patient Portal/API, Stroke Signs & Symptoms, Surgery Discharge Discharge Data Primary Care Provider: Letha Charles Discharges patient from system. Discharge Date/Time: 12/12/22 08:47 Quality VTE Deep Vein Thrombosis/Pulmonary Embolism Present on Admission: No
== END 2022-12-12 08:47 | disposition home or self-care (01) | DRG 853 ==
LOC: ED 22:13 → AC 12-10 06:43
PROVIDERS: Admitting Provider Surgery; Emergency Provider Surgery; PCP Physician Assistant; Referring Provider Emergency Medicine; Visit Provider Surgery
PROC: 0DTJ4ZZ Resection of Appendix, Percutaneous Endoscopic Approach (ICD-10-PCS; CPT 44970; principal; 2022-12-11 14:30)
DX: A41.9 Sepsis, unspecified organism (principal); K35.32 Acute appendicitis with perforation, localized peritonitis, and gangrene, without abscess; Z98.84 Bariatric surgery status; Z20.822 Contact with and (suspected) exposure to COVID-19
CPT/HCPCS: 36415; 43772; 44970; 74177; 80053; 81003; 83605; 83690; 83880; 85025; 87635; 93005; 96365; 96366; 96375; 99222; 99284; 99291; C9803; C9113; J0171; J1100; J1170; J1644; J2405; J2543; J2704; J3010; Q9967

== ENCOUNTER 2022-12-16 17:32 | Emergency (ER) | payer OTHER, SELFPAY ==
[2022-12-10 21:55] VITALS: BMI 39.4
[2022-12-16] VITALS (11 sets, daily range): BP systolic 134–187; BP diastolic 71–91; PULSE 66–79; RESP 18–28; TEMP 36.3; O2SAT 94–97; BMI 41.4
--- NOTE | 2022-12-16 18:06 | ED_ITS ---
HPI - SOB/Dyspnea General Chief Complaint: Shortness of Breath/Dyspnea Stated Complaint: short of breath s/p surgery on sat Time Seen by Provider: 12/16/22 17:48 Source: patient Mode of arrival: Ambulatory History of Present Illness HPI Narrative: This is a 62-year-old female with history of breast cancer with lumpectomy and radiation, chronic back pain, seasonal allergies who is 5 days postop from ex lap for ruptured appendicitis as well as gastric lap band removal. Patient did have a delay going to the OR for about 2 days before she had her appendix removed, she states since being discharged he is had increasing shortness of breath, orthopnea and swelling in her extremities. She denies any chest pain or pressure. No fevers, no chills. She is had some mild cough that has been nonproductive. No lightheadedness or passing out. She denies any nausea or vomiting. She states her abdominal pain is present particularly when she coughs but is slowly improving. She states incision seemed to be clean and dry and healing. She states she is been having bowel movements regularly, no black or bloody stools. No dysuria, urgency or frequency. Patient notes she has had increased swelling bilateral lower extremities along with some slight discomfort on the inside of the ankles. She has not appreciate any cramping or redness otherwise. Patient normally takes duloxetine for chronic back pain, Tylenol in the morning, amitriptyline for headaches, Zyrtec and Flonase. She states she was discharged home on gabapentin and an NSAID for her pain. She states she has not been taking the oxycodone in the last couple days. Patient has a prior lap band which was removed during her appendectomy. She is had history of breast ca ncer with lumpectomy and radiation but no chemotherapy or HRT therapy. Bilateral knee surgery. No known drug allergies. No tobacco, alcohol or illicit. She notes her mom did develop blood clots and pulmonary emboli after vein stripping about 20 years ago. Related Data Home Medications Medication Instructions Recorded Confirmed cetirizine 10 mg tablet 10 mg PO DAILY 12/10/20 12/10/22 docusate sodium 250 mg capsule 250 mg PO DAILY 12/10/20 12/10/22 duloxetine 60 mg capsule,delayed 120 mg PO DAILY 12/10/20 12/10/22 release fluticasone furoate 27.5 1 spray intranasal DAILY 12/10/20 12/10/22 mcg/actuation nasal spray,suspension polyethylene glycol 3350 17 17 g PO PRN PRN Constipation 12/10/20 12/10/22 gram/dose oral powder (Miralax) rizatriptan 10 mg tablet 10 mg PO Q2-4H PRN Headache 12/10/20 12/10/22 zolpidem 5 mg tablet 5 mg PO BEDTIME PRN Insomnia 12/10/20 12/10/22 amitriptyline 25 mg tablet 25 mg PO DAILY 12/10/22 12/10/22 Previous Rx's Medication Instructions Recorded amoxicillin 875 mg-potassium 1 tab PO BID #14 tabs 12/12/22 clavulanate 125 mg tablet celecoxib 200 mg capsule (Celebrex) 200 mg PO BID #20 caps 12/12/22 gabapentin 300 mg capsule 300 mg PO TID #30 caps 12/12/22 (Neurontin) oxycodone 5 mg tablet 5 mg PO Q3H PRN Pain, Moderate 12/12/22 (4-6) #20 tabs pantoprazole 20 mg tablet,delayed 20 mg PO 0600 #30 tabs 12/12/22 release vitamin 1 tab PO DAILY #30 tabs 12/12/22 no.76-iron,carbonyl 29 mg iron-folic acid 1 mg tablet (Prenatabs Rx) furosemide 40 mg tablet (Lasix) 40 mg PO DAILY #7 tabs 12/16/22 Allergies Allergy/AdvReac Type Severity Reaction Status Date / Time ketorolac [From Toradol] AdvReac Headache Verified 12/16/22 17:51 Review of Systems Review of Systems ROS Unobtainable: All systems reviewed & are unremarkable except as noted in HPI and below Patient History Medical History Acute appendicitis Chronic back pain Chronic headache Surgical History Status post gastric banding Social History household members: spouse Smoking Status: Never smoker alcohol intake: current Smoking Status: Never smoker alcohol intake frequency: holidays/special occasions only Substance Use Type: does not use Exam Narrative Exam Narrative: GENERAL: Alert and oriented x three, obese female in mild distress HEENT: Head normocephalic, atraumatic, EOMI, pupils reactive, face symmetric, moist mucous membranes NECK: Supple, full range of motion CARDIOVASCULAR: Regular rate and rhythm without murmurs, rubs or gallops. Patient has bilateral lower extremity edema. RESPIRATORY: Breath sounds equal bilaterally, no wheezes rales or rhonchi. Mild tachypnea. No accessory muscle use. ABDOMEN: Soft, mild generalized tenderness. Nondistended. Patient has healing incisions that are clean dry and intact without any erythema or drainage. Normoactive bowel sounds all 4 quadrants. No guarding or rebound, rigidity, no mass : No CVA tenderness EXTREMITIES: Normal range of motion, no clubbing, positive for edema. Neurovascularly intact NEUROLOGICAL: Cranial nerves II through XII grossly intact. Moving all extremities SKIN: Warm, dry, no petechiae, no rashes or lesions. Initial Vital Signs Initial Vital Signs: Vital Signs Pulse Rate 79 12/16/22 17:44 Blood Pressure 187/91 H 12/16/22 17:44 Pulse Oximetry 96 12/16/22 17:44 Course Orders Ordered: ED Orders 12/16/22 18:07 Chest [XR chest 1V] Stat EKG-12 Lead Stat 12/16/22 18:21 US periph venous low extrem bi Stat 12/16/22 18:56 CT angio chest PE protocol Stat Discontinued Medications Furosemide (Furosemide 40 Mg/4 Ml Vial) 40 mg IV NOW ONE Stop: 12/16/22 20:36 Last Admin: 12/16/22 20:47 Dose: 40 mg Documented By: SB Vital Signs Vital signs: Vital Signs - 8 hr 12/16/22 21:18 12/16/22 19:30 12/16/22 19:57 Pulse Rate 71 Respiratory Rate 19 Blood Pressure 137/76 134/85 Pulse Oximetry 95 Oxygen Delivery Method 12/16/22 20:09 12/16/22 20:30 12/16/22 21:00 Pulse Rate 67 66 Respiratory Rate 18 18 Blood Pressure 152/73 H Pulse Oximetry 95 94 Oxygen Delivery Method Room Air 12/16/22 21:17 12/16/22 21:18 Pulse Rate 73 Respiratory Rate Blood Pressure 137/76 Pulse Oximetry 96 Oxygen Delivery Method MDM - SOB/Dyspnea Lab Data 12/16/22 17:47 12/16/22 17:47 Labs: Lab Results 12/16/22 12/16/22 12/16/22 Range/Units 17:03 17:47 17:47 WBC 9.4 (4.5-11.0) X10^3/uL RBC 3.55 L (4.0-5.2) X10^6/uL Hgb 10.4 L (12.0-16.0) g/dL Hct 31.2 L (36-46) % MCV 87.9 (80-100) fL MCH 29.2 (26-34) PG MCHC 33.2 (30-36) % RDW 13.8 (11.6-14.8) % Plt Count 415 H (150-400) X10^3/uL Neut % (Auto) 63.3 (50-75) % Lymph % (Auto) 21.0 L (25-40) % [place] % (Auto) 11.5 (3-14) % Eos % (Auto) 3.4 (2-4) % Baso % (Auto) 0.8 (0-2) % Neut # (Auto) 5900 (5758-4780) /uL Lymph # (Auto) 2000 (6417-9374) /uL [place] # (Auto) 1100 H (0-900) /uL Eos # (Auto) 300 (0-450) /uL Baso # (Auto) 100 (0-100) /uL PT 12.1 (10.1-12.7) SECONDS INR 1.1 (0.9-1.3) APTT 32 (26-36) SECONDS D-Dimer 4564 H (<500) ng/ml Sodium (137-145) mmol/L Potassium (3.4-5.1) mmol/L Chloride (98-107) mmol/L Carbon Dioxide (22-32) mmol/L BUN (7-17) mg/dL Creatinine (0.52-1.04) mg/dL Estimated GFR (>60) mL/min BUN/Creatinine Ratio (6-22) Glucose (80-110) mg/dL Calcium (8.4-10.2) mg/dL Magnesium (1.6-2.3) mg/dL Total Bilirubin (0.2-1.3) mg/dL AST (14-36) IU/L ALT (<35) IU/L Alkaline Phosphatase (38-126) U/L Total Creatine Kinase (30-135) U/L CK-MB (CK-2) (<2.37) ng/mL CK-MB (CK-2) Rel Index (1.5-5.0) % Troponin I (0.01-0.034) ng/mL NT-Pro-B Natriuret Pep (<125) pg/mL Total Protein (6.3-8.2) g/dL Albumin (3.5-5.0) g/dL Globulin (1.7-4.1) g/dL Albumin/Globulin Ratio (1.0-2.8) Lipase (23-300) U/L 12/16/22 Range/Units 17:47 WBC (4.5-11.0) X10^3/uL RBC (4.0-5.2) X10^6/uL Hgb (12.0-16.0) g/dL Hct (36-46) % MCV (80-100) fL MCH (26-34) PG MCHC (30-36) % RDW (11.6-14.8) % Plt Count (150-400) X10^3/uL Neut % (Auto) (50-75) % Lymph % (Auto) (25-40) % [place]pson % (Auto) (3-14) % Eos % (Auto) (2-4) % Baso % (Auto) (0-2) % Neut # (Auto) (0935-4721) /uL Lymph # (Auto) (2131-9585) /uL [place]pson # (Auto) (0-900) /uL Eos # (Auto) (0-450) /uL Baso # (Auto) (0-100) /uL PT (10.1-12.7) SECONDS INR (0.9-1.3) APTT (26-36) SECONDS D-Dimer (<500) ng/ml Sodium 140 (137-145) mmol/L Potassium 3.7 (3.4-5.1) mmol/L Chloride 104 (98-107) mmol/L Carbon Dioxide 29 (22-32) mmol/L BUN 12 (7-17) mg/dL Creatinine 0.61 (0.52-1.04) mg/dL Estimated GFR > 60 (>60) mL/min BUN/Creatinine Ratio 19.7 (6-22) Glucose 93 (80-110) mg/dL Calcium 8.2 L (8.4-10.2) mg/dL Magnesium 2.0 (1.6-2.3) mg/dL Total Bilirubin 0.1 L (0.2-1.3) mg/dL AST 25 (14-36) IU/L ALT 26 (<35) IU/L Alkaline Phosphatase 116 (38-126) U/L Total Creatine Kinase 116 (30-135) U/L CK-MB (CK-2) 2.39 H (<2.37) ng/mL CK-MB (CK-2) Rel Index 2.1 (1.5-5.0) % Troponin I < 0.012 (0.01-0.034) ng/mL NT-Pro-B Natriuret Pep 932 H (<125) pg/mL Total Protein 6.3 (6.3-8.2) g/dL Albumin 3.1 L (3.5-5.0) g/dL Globulin 3.2 (1.7-4.1) g/dL Albumin/Globulin Ratio 1.0 (1.0-2.8) Lipase 136 (23-300) U/L Urine Dip Bedside Urine Glucose Negative Bedside Urine Bilirubin - Negative Bedside Urine Ketone - Negative Urine Specific [place] 1.010 Bedside Urine Occult Blood - Negative Bedside Urine pH 6.5 Bedside Urine Protein - Negative Bedside Urine Urobilinogen - Negative Bedside Urine Nitrite - Negative Bedside Urine Leukocytes - Negative Esterase Imaging Data CT scan - chest: Radiologist's Impression: [address] [address] [address] Scan Report Signed Patient: Pratima Pham MR#: [id number] : 1960 Acct:[id number] Age/Sex: 62 / F Date of Service: 12/16/22 Loc: ED Accession Number: [id number] ?? Procedure: CT angio chest PE protocol Ordering Provider: Francy Ricks D.O. PROCEDURE:? CT ANGIO CHEST PE PROTOCOL ? INDICATIONS:? increased sob, swelling b/l le, appendectomy 12/11 ? TECHNIQUE:? After the administration of intravenous contrast, 2 mm thick sections acquired from the pulmonary apices to the posterior costophrenic angles.? 3-dimensional maximum intensity projection (MIP) coronal and sagittal reformats were then acquired through the thorax.? For radiation dose reduction, the following was used:? automated exposure control, adjustment of mA and/or kV according to patient size.? ? COMPARISON:? [facility], CT, CT ABDOMEN PELVIS W CON, 12/09/2022, 20:30. ? FINDINGS:? Image quality:? Excellent.? ? Pulmonary arteries:? Main pulmonary artery measures approximately 3.1 cm in diameter, which can be seen in setting of pulmonary hypertension.? No intraluminal filling defect is seen.? ? Lungs and pleura:? Small bilateral pleural effusion with atelectasis of the lung bases, new when compared to the CT from 12/09/2022.? No pneumothorax.? No separate pulmonary consolidation.? No suspicious pulmonary nodule.? Central airways are patent.? ? Mediastinum:? Heart size is normal, without pericardial effusion.? No mediastinal or hilar adenopathy.? Thoracic aorta is normal in caliber and enhancement.? Mildly patulous distal esophagus. ? Bones and chest wall:? Irregular scarring and/or fluid collection are seen in the right breast with surrounding surgical clips.? Skin thickening in the right breast may be related to post radiation changes.? No suspicious bony lesions.? Ribs and thoracic spine appear intact throughout.? Thyroid is unremarkable.? No axillary or s upraclavicular adenopathy.? ? Abdomen:? Previously seen gastric lap band is no longer present.? Stable right hepatic cyst.? ? IMPRESSION:? 1. No acute pulmonary embolus. 2. Small bilateral pleural effusions are seen with atelectasis of the lung bases, new when compared to the CT from 12/09/2022. 3. Mildly enlarged main pulmonary artery measuring 3.1 cm in diameter, which can be seen in the setting of pulmonary arterial hypertension. 4. Postsurgical/posttreatment changes are seen in the right breast. ? ? ? Approved by: Dennis Lyman M.D. on 12/16/2022 at 20:12? ECG Data Attestation: I personally reviewed and interpreted this ECG as follows: Prior ECG tracings: available for review Interpretation: Sinus rhythm rate of 69 ME 144 QRS 82 QTC of 452. Patient is normal sinus rhythm, nonspecific T-wave change V1 tooth 3 difficult to tell from prior this is new. No new ST elevation noted. MDM Narrative Medical decision making narrative: This is a 62-year-old female with increasing shortness of breath, orthopnea and edema bilateral lower extremities patient had recent appendectomy had a little bit prolonged hospital stay secondary to a delay getting to the OR and was discharged the following day afterwards. No known blood clotting disorder in the patient but mom did have blood clots after vein stripping. Patient is also likely to be fluid overloaded, she is noted she is not having a lot of urine output. She does not have any known cardiac history, CBC, CMP, lipase, troponin, BNP, dimer, bilateral DVT ultrasound, chest x-ray and EKG were obtained. Patient's labs she is anemic but stable, dimer is [address] angio, patient has normal electrolytes, renal function, LFTs with negative troponin, BNP is 932 was 322 on 12/10. Chest x-ray did show some mild changes consistent with fluid overload. Bilateral DVT ultrasound is negative. CT Angio, no PE, small bilateral pleural effusions, mildly enlarged main pulmonary artery. Poor surgical/post treatment changes seen in the right breast. Patient given dose of Lasix here in the department. Ambulatory pulse ox is 96. She is not significantly tachypneic or tachycardic. Plan for diuresis. She has a follow-up appointment set up this coming week. We discussed return precautions and need for recheck and follow-up. Discharge Plan Departure Patient Disposition: Home Clinical Impression: CHF (congestive heart failure), Bilateral pleural effusion Instructions: DI for Heart Failure Activity Restrictions/Additional Instructions: Please follow-up with your physician sure appointment next week. Discuss if they like any further workup, if they wish to continue the Lasix or evaluate with ECHO. Your imaging today was reassuring no signs of blood clots but you do have congestive heart failure fluid overload and some pleural effusion on your imaging. Please take Lasix 40 mg once daily x7 days. Prescription sent to [facility] in [place]. Continue your home medications as prescribed. Please return for worsening shortness of breath, new chest pain, lightheadedness or passing out, increasing swelling of extremities, increasing difficulty lying flat or coughing up blood, fevers or other new or concerning changes. Prescriptions: New furosemide [Lasix] 40 mg tablet 40 mg PO DAILY Qty: 7 0RF No Action amitriptyline 25 mg Tablet 25 mg PO DAILY celecoxib [Celebrex] 200 mg Capsule 200 mg PO BID Qty: 20 0RF pantoprazole 20 mg Tablet,Delayed Release (Dr/Ec) 20 mg PO 0600 Qty: 30 0RF gabapentin [Neurontin] 300 mg Capsule 300 mg PO TID Qty: 30 0RF amoxicillin-pot clavulanate 875-125 mg Tablet 1 tab PO BID Qty: 14 0RF oxycodone 5 mg Tablet 5 mg PO Q3H PRN (Reason: Pain, Moderate (4-6)) Qty: 20 0RF Prenatabs Rx 29 mg iron- 1 mg Tablet 1 tab PO DAILY Qty: 30 0RF cetirizine 10 mg Tablet 10 mg PO DAILY rizatriptan 10 mg Tablet 10 mg PO Q2-4H PRN (Reason: Headache) zolpidem 5 mg Tablet 5 mg PO BEDTIME PRN (Reason: Insomnia) polyethylene glycol 3350 [Miralax] 17 gram/dose Powder 17 g PO PRN PRN (Reason: Constipation) docusate sodium 250 mg Capsule 250 mg PO DAILY duloxetine 60 mg Capsule,Delayed Release(Dr/Ec) 120 mg PO DAILY fluticasone furoate 27.5 mcg/actuation [place],Suspension 1 spray INTRANASAL DAILY Referrals: Letha Charles PA-C [Primary Care Provider] - Stand Alone Forms: Patient Portal/API
--- NOTE | 2022-12-16 18:07 | DI.RAD.S_ITS ---
PROCEDURE: XR CHEST 1V INDICATIONS: sob, s/p surgery tuesday TECHNIQUE: One view of the chest was acquired. COMPARISON: None. FINDINGS: Surgical changes and devices: None. Lungs and pleura: Mildly low lung volumes are seen bilaterally with atelectasis of the lung bases. Lungs otherwise clear. No pleural effusion or pneumothorax. Mediastinum: Mediastinal contours appear normal. Heart size is normal. Bones and chest wall: No suspicious bony lesions. Overlying soft tissues appear unremarkable. IMPRESSION: Mildly low lung volumes with bibasilar atelectasis. No definite acute cardiopulmonary abnormality. Approved by: Dennis Lyman M.D. on 12/16/2022 at 19:01
[2022-12-16 18:11] LABS: D Dimer 4564 ng/ml (<500)
[2022-12-16 18:20] LABS: Alanine Aminotransferase 26 IU/L (<35); Albumin 3.1 g/dL (3.5-5.0); Alkaline Phosphatase 116 U/L (38-126); Aspartate Aminotransferase 25 IU/L (14-36); BUN Creatinine Ratio 19.7 (6-22); Bilirubin Total 0.1 mg/dL (0.2-1.3); Blood Urea Nitrogen 12 mg/dL (7-17); Calcium 8.2 mg/dL (8.4-10.2); Carbon Dioxide 29 mmol/L (22-32); Chloride 104 mmol/L (98-107); Creatine Kinase 116 U/L (30-135); Estimated Glomerular Filt Rate > 60 mL/min (>60); Globulin 3.2 g/dL (1.7-4.1); Glucose 93 mg/dL (80-110); HEMOLYSIS < 15 (0-50); Lipase 136 U/L (23-300); Potassium 3.7 mmol/L (3.4-5.1); Sodium 140 mmol/L (137-145); Total Protein 6.3 g/dL (6.3-8.2)
--- NOTE | 2022-12-16 18:21 | DI.US.S_ITS ---
PROCEDURE: US PERIPH VENOUS LOW EXTREM BI INDICATIONS: b/l swelling s/p surgery TECHNIQUE: Real-time imaging, as well as color and pulse Doppler interrogation, were performed of the deep veins of both legs from the inguinal ligament to the popliteal fossa. COMPARISON: None. FINDINGS: Right: The common femoral, femoral and popliteal veins are normally compressible, and free of intraluminal thrombus. Color and pulse Doppler demonstrate normal phasic intravascular flow. There is normal augmentation response to distal compression maneuver. Left: The common femoral, femoral and popliteal veins are normally compressible, and free of intraluminal thrombus. Color and pulse Doppler demonstrate normal phasic intravascular flow. There is normal augmentation response to distal compression maneuver. IMPRESSION: Negative for deep venous thrombosis. Dictated by: Ed Delgado M.D. on 12/16/2022 at 18:08 Approved by: Ed Delgado M.D. on 12/16/2022 at 18:09
[2022-12-16 18:32] LABS: NT-proBNP (BNP-Adult 18+) 932 pg/mL (<125); Troponin I < 0.012 ng/mL (0.01-0.034)
[2022-12-16 18:35] LABS: CKMB % Relative Index 2.1 % (1.5-5.0); Creatine Kinase MB 2.39 ng/mL (<2.37)
[2022-12-16 18:45] LABS: Add Manual Diff / Slide Review NO; Basophils Absolute Auto 100 /uL (0-100); Basophils Percent Auto 0.8 % (0-2); Eosinophils Absolute Auto 300 /uL (0-450); Eosinophils Percent Auto 3.4 % (2-4); Hematocrit 31.2 % (36-46); Hemoglobin 10.4 g/dL (12.0-16.0); Lymphocytes Absolute Auto 2000 /uL (1100-4500); Mean Corpuscular HGB Conc 33.2 % (30-36); Mean Corpuscular Hemoglobin 29.2 PG (26-34); Mean Corpuscular Volume 87.9 fL (80-100); Monocytes Absolute Auto 1100 /uL (0-900); Monocytes Percent Auto 11.5 % (3-14); Neutrophils Absolute Auto 5900 /uL (1500-7000); Neutrophils Percent Auto 63.3 % (50-75); Platelet Count 415 X10^3/uL (150-400); Red Blood Cell Count 3.55 X10^6/uL (4.0-5.2); Red Cell Distribution Width 13.8 % (11.6-14.8); White Blood Cell Count 9.4 X10^3/uL (4.5-11.0)
--- NOTE | 2022-12-16 18:56 | DI.CT.S_ITS ---
PROCEDURE: CT ANGIO CHEST PE PROTOCOL INDICATIONS: increased sob, swelling b/l le, appendectomy 12/11 TECHNIQUE: After the administration of intravenous contrast, 2 mm thick sections acquired from the pulmonary apices to the posterior costophrenic angles. 3-dimensional maximum intensity projection (MIP) coronal and sagittal reformats were then acquired through the thorax. For radiation dose reduction, the following was used: automated exposure control, adjustment of mA and/or kV according to patient size. COMPARISON: [facility], CT, CT ABDOMEN PELVIS W CON, 12/09/2022, 20:30. FINDINGS: Image quality: Excellent. Pulmonary arteries: Main pulmonary artery measures approximately 3.1 cm in diameter, which can be seen in setting of pulmonary hypertension. No intraluminal filling defect is seen. Lungs and pleura: Small bilateral pleural effusion with atelectasis of the lung bases, new when compared to the CT from 12/09/2022. No pneumothorax. No separate pulmonary consolidation. No suspicious pulmonary nodule. Central airways are patent. Mediastinum: Heart size is normal, without pericardial effusion. No mediastinal or hilar adenopathy. Thoracic aorta is normal in caliber and enhancement. Mildly patulous distal esophagus. Bones and chest wall: Irregular scarring and/or fluid collection are seen in the right breast with surrounding surgical clips. Skin thickening in the right breast may be related to post radiation changes. No suspicious bony lesions. Ribs and thoracic spine appear intact throughout. Thyroid is unremarkable. No axillary or supraclavicular adenopathy. Abdomen: Previously seen gastric lap band is no longer present. Stable right hepatic cyst. IMPRESSION: 1. No acute pulmonary embolus. 2. Small bilateral pleural effusions are seen with atelectasis of the lung bases, new when compared to the CT from 12/09/2022. 3. Mildly enlarged main pulmonary artery measuring 3.1 cm in diameter, which can be seen in the setting of pulmonary arterial hypertension. 4. Postsurgical/posttreatment changes are seen in the right breast. Approved by: Dennis Lyman M.D. on 12/16/2022 at 20:12
[2022-12-16 19:12] LABS: INR 1.1 (0.9-1.3); Prothrombin Time 12.1 SECONDS (10.1-12.7)
[2022-12-16 19:15] LABS: PTT Partial Thromboplastin Tim 32 SECONDS (26-36)
[2022-12-16] MEDS: FUROSEMIDE 40 MG/4 ML VIAL IV (20:47)
== END 2022-12-16 21:48 | disposition home or self-care (01) ==
PROVIDERS: Emergency Medicine; Emergency Provider Emergency Medicine; PCP Physician Assistant
DX: I50.9 Heart failure, unspecified (principal); J90 Pleural effusion, not elsewhere classified
CPT/HCPCS: 36415; 71045; 71275; 80053; 81003; 82550; 82553; 83690; 83735; 83880; 84484; 85025; 85379; 85610; 85730; 93005; 93010; 93970; 96374; 99284; J1940; Q9967

== ENCOUNTER → 2023-01-06 12:40 | Outpatient (CLI) | payer OTHER, SELFPAY ==
[2022-12-10 21:55] VITALS: BMI 39.4
--- NOTE | 2023-01-06 | DI.ECHO.S_ITS ---
[facility]---------+ [facility] +---------+ : : [address] : : : : [id number] : : : : Phone: [phone] Echocardiogram Report + + :Name: DIEGO MARTIN Study Date: 01/06/2023 Height: 63 in : :[facility] ReadingLocation: Weight: 210 lb : : Gender: Female BSA: 2.0 m2 : :: 1960 Age: 62 yrs BP: 142/80 mmHg: :Reason For Study: UNSPECIFIED DIASTOLIC (CONGESTIVE) HEART : :FAILURE HR: 66 : :Ordering Physician: CALDERON, : :RASHAUN Performed By: RADHA HALEY : :Referring: RASHAUN MANCERA : + + Interpretation Summary 1) Normal left ventricular thickness, size, wall motion, and systolic function (EF 60-65%). 2) Normal right ventricular size and function. 3) No significant valvular abnormalities. 4) The ascending aorta is mildly enlarged at 4.2cm. 5) No prior Echo available for comparison. Procedure: A two-dimensional transthoracic echocardiogram with color flow and Doppler was performed. The study quality was technically adequate. There is no prior echocardiogram noted for this patient. The patient was in normal sinus rhythm during the exam. Left Ventricle: The left ventricle is normal in size and wall thickness. Left ventricular systolic function is normal. The ejection fraction is estimated to be 60-65%. Left ventricular wall motion is normal. Diastolic parameters suggest a relaxation abnormality of the left ventricle, consistent with probable normal filling pressures. Right Ventricle: The right ventricle is normal in size and function. Atria: Both atria are normal in size. There is no Doppler evidence for an interatrial shunt. Mitral Valve: The mitral valve is normal in structure and function. There is trace mitral regurgitation. Aortic Valve: The aortic valve is not well visualized. The aortic valve is slightly calcified. There is no aortic valve stenosis. There is trace aortic regurgitation. Tricuspid Valve: The tricuspid valve is normal in structure and function. There is a trace or physiologic amount of tricuspid regurgitation. The right ventricular systolic pressure is estimated to be at least 18 mmHg based on an estimated right atrial pressure of 3 mm Hg. Pulmonic Valve: The pulmonic valve is normal in structure and function. There is trace pulmonic regurgitation. Great Vessels: The aortic root is borderline dilated. The ascending aorta is mildly enlarged. The IVC is of normal diameter and collapses greater than 50% with a sniff. This suggests a low right atrial pressure of 3 mm Hg. Pericardium/ Pleura There is no pericardial effusion. MMode/2D Measurements & Calculations LVIDd: 4.7 cm LVOT diam: 2.0 cm LVIDs: 2.9 cm Ao root diam: 3.7 cm FS: 38.3 % asc Aorta Diam: 4.2 cm IVSd: 1.1 cm LVPWd: 1.1 cm LV germain. diameter/BSA (cm/m^2): 2.4 LV sys. diameter/BSA (cm/m^2): 1.5 LA A2 area: 12.0 cm2 RA long axis: 4.6 cm LA A4 area: 14.6 cm2 LA length (vol): 4.2 cm LA vol: 35.1 ml LA vol index: 17.8 ml/m2 LVLs ap4: 6.5 cm LVLd ap2: 8.1 cm LVLs ap2: 7.0 cm TAPSE_phl: 1.7 cm Doppler Measurements & Calculations Ao V2 max: 128.0 cm/sec LVOT Max Prakash: 99.9 cm/sec Ao V2 mean: 84.1 cm/sec LV V1 max P.0 mmHg Ao max P.0 mmHg LV V1 VTI: 24.3 cm Ao mean P.0 mmHg JORDY(I,D): 2.9 cm2 Ao V2 VTI: 25.9 cm JORDY(V,D): 2.5 cm2 sev ratio: 0.94 JORDY indexed to BSA (cm^2/m^2): 1.5 MV E max prakash: 98.5 cm/sec TR max prakash: 195.0 cm/sec MV A max prakash: 75.0 cm/sec TR max P.2 mmHg MV E/A: 1.3 PA V2 max: 80.3 cm/sec Med Peak E' Prakash: 8.4 cm/sec PA V2 mean: 65.9 cm/sec E/E' med: 11.7 PA mean P.0 mmHg Lat Peak E' Prakash: 12.6 cm/sec PA pr(Accel): 23.6 mmHg E/E' lat: 7.8 E/e' average: 9.8 MV dec time: 0.24 sec SV(LVOT): 76.3 ml AV VR_phl: 0.78 JORDY(VTI)/BSA_phl: 1.5 MV P1/2t-pr_phl: 69.0 msec Reading Physician:01:45 PM
== END ==
PROVIDERS: PCP Physician Assistant; Referring Provider Student in an Organized Health Care Education/Training Program; Visit Provider Student in an Organized Health Care Education/Training Program
DX: I50.30 Unspecified diastolic (congestive) heart failure (principal); I77.89 Other specified disorders of arteries and arterioles
CPT/HCPCS: 93306

== ENCOUNTER → 2024-01-03 13:51 | Outpatient (CLI) | payer OTHER, SELFPAY ==
[2022-12-10 21:55] VITALS: BMI 39.4
--- NOTE | 2024-01-03 14:00 | DIET.OUTPTC ---
Dietary Outpatient Consultation Note Consultation Date: 01/03/2024 Assessment: 63 y F referred to dietitian for pre-DM, obesity, elevated BP reading without dx of HTN. Pratima is looking for help with weight management for prevention of DM and BP control and wants to ensure she has adequate protein and water intake. PMH of lap band surgery done ~20 yrs ago. Lap band was removed 2022. Takes blood pressure at home, states it is around 130/80s usually. Diet recall: Late breakfast: 2 eggo waffles with 2 tbsp peanut butter and sometimes honey OR 1 egg and 1 slice sourdough bread 1-2p: 3/4 c Turkish yogurt with granola OR ~1/2 c quinoa salad Dinner: cooks- meat and veg, no carb majority of time ( has diabetes) -red meat 3x/wk -chicken 2x/wk -fish 2x/wk - cooks without salt, but she will add salt to meals Evening snack: Smart popcorn or 1-2 large marshmallows sometimes Eats out 1-2x/week at [facility] place Protein intake is between 55-65 grams daily Beverages: 1 c coffee with sugar free creamer, 16 oz glasses of water x4/d mixed with Crystal Light (64 oz water total) Activity: Water class 3x/week for 1 hour- mix of aerobics and stretching Walk with older dog 40 mins stop and go walking x3/week Nutrition related medications: On Ozempic for 1 month for trial- nausea and insurance couldn't cover, d/c Now on phentermine with topiramate Omeprazole 40 mg since 2022 Ht: 5 ft 3 in (160 cm Wt: 220 lb (100 kg) BMI: 39.4 Nutrition Diagnosis: Nutrition r/t knowledge deficit r/t limited past nutrition educ as evidenced by pt report in nutrition assessment Interventions: -MNT provided for pre-DM, BP management, weight management Including: balanced meals, label reading, macros, reccs of protein and water intake, activity Goals: 1. Adequate protein source at breakfast 2. Replace 1 red meat option once/week with legume based meal 3. Reduce added salt intake to 1/2 current amount or none 4. Future- 40 minute walk 3-4x/week at increased/brisk pace (pt states she is looking into getting stroller for older, small dog who accompanies her on walks) EER: Protein: 65-80 g protein (.9-1.0 g protein adjusted IBW) Monitoring/Evaluations: goals, diet recall, BP reported readings, activity Electronically Signed by: Gini Douglas 01/03/24 14:00 Clinical Dietitian [address] [id number]
== END ==
PROVIDERS: PCP Physician Assistant; Referring Provider Physician Assistant
DX: R73.03 Prediabetes (principal); E66.9 Obesity, unspecified; Z68.39 Body mass index [BMI] 39.0-39.9, adult; Z71.3 Dietary counseling and surveillance; R03.0 Elevated blood-pressure reading, without diagnosis of hypertension
CPT/HCPCS: 97802